=== PATIENT | female | born 1965 | race Asian ===

== ENCOUNTER 2018-03-02 14:53 | Emergency (ER) | payer OTHER ==
[~2018-03-02] VITALS: Ht 149.9 cm; Wt 36.4 kg
[~2018-03-02 14:53] MED LIST: ASPI-825 PO; ATOR40TA28 PO; GLIP5TAB11 PO; METF-444 PO; METO-391 PO; NIAC500C3 PO; SIMV5TAB6 PO
[2018-03-02 14:55] VITALS: BP 110/72
[2018-03-02] MEDS ORDERED: ENAL5 PO (15:00)
[2018-03-02 15:02] LABS: GLUCOSE,POINT OF CARE 199 MG/DL (70-110)
[2018-03-02] MEDS ORDERED: FENO48TA15 PO (15:38)
== END 2018-03-02 16:25 | disposition left against medical advice (07) ==
LOC: EMS 14:54
DX: M54.9 Dorsalgia, unspecified (principal); E11.9 Type 2 diabetes mellitus without complications; E78.00 Pure hypercholesterolemia, unspecified; Z53.21 Procedure and treatment not carried out due to patient leaving prior to being seen by health care provider
CPT/HCPCS: 82962; 93005

== ENCOUNTER 2020-06-28 08:10 | Emergency (ER) | payer OTHER ==
[~2020-06-28] VITALS: Ht 154.9 cm; Wt 52.3 kg
[~2020-06-28 08:10] MED LIST changes: -ATOR40TA28 PO; +GEMF600T5 PO; -METO-391 PO; -NIAC500C3 PO; -SIMV5TAB6 PO
[2020-06-28] MEDS ORDERED: DIAZEPAM 2 MG TABLET PO ONE (10:45)
[2020-06-28] MEDS ORDERED: LIDOCAINE 1% 10 ML VIAL INJ ONE (10:45)
[2020-06-28 11:45] VITALS: BP 125/74
== END 2020-06-28 12:04 | disposition home or self-care (01) ==
LOC: EMS 08:12
DX: M62.838 Other muscle spasm (principal); E11.9 Type 2 diabetes mellitus without complications; E78.00 Pure hypercholesterolemia, unspecified; Z79.84 Long term (current) use of oral hypoglycemic drugs; Z79.82 Long term (current) use of aspirin
CPT/HCPCS: 20552; 99284; J3490; 20550